=== PATIENT | female | born 1965 | race African-American/Black ===

== ENCOUNTER → 2021-12-09 | Outpatient (CLI) | payer BC ==
--- NOTE | 2021-12-09 16:18 | RAD ---
EXAMINATION: XR EXAM OF ANKLE_RIGHT 3VIEWS. HISTORY: 56 years Female Reason: FELL PAIN / COMPARISON: None. FINDINGS: No fracture, dislocation or radiopaque foreign body. The joint spaces and articular surfaces appea r unremarkable. Posterior and inferior calcaneal spurs seen. IMPRESSION: No fracture. Electronically signed by: Rashawn Griggs MD (12/09/2021 4:16 PM) [id number]
--- NOTE | 2021-12-09 16:21 | RAD ---
EXAMINATION: XR FOOT_RIGHT 3 VIEWS. HISTORY: 56 years Female Reason: FELL PAIN COMPARISON: The hallux valgus grades. FINDINGS: No fracture, dislocation or radiopaque foreign body. The joint spaces and articular surfaces appea r unremarkable. There is mild hallux valgus. There is inferior and posterior calcaneal spurs. IMPRESSION: Hallux valgus. No acute process. Electronically signed by: Rashawn Griggs MD (12/09/2021 4:18 PM) [id number]
== END ==
LOC: RAD 15:58
PROVIDERS: ATTEND Nurse Practitioner
DX: M77.31 Calcaneal spur, right foot (principal); M20.11 Hallux valgus (acquired), right foot
CPT/HCPCS: 73610; 73630